=== PATIENT | female | born 1990 | race Caucasian/White ===

== ENCOUNTER 2018-11-01 20:09 | Emergency (ER) | payer MEDICAID, OTHER ==
[~2018-11-01] VITALS: Ht 167.6 cm; Wt 41.7 kg
[2018-11-01 20:09] VITALS: BP 108/77
--- NOTE | 2018-11-01 20:36 | NUR ---
PT BIBS FOR C/O LACERATION TO LW, SUSTAINED WHEN OPENING THE WINDOW, VS STABLE PLACED ON ER BED 15, SEEN BY TEE IZQUIERDO DONE IV ROCEPHINE ORDERED.
[2018-11-01] MEDS ORDERED: CEFAZOLIN 1 GM in IV D5W 50 ML IV ONE (21:00)
--- NOTE | 2018-11-01 21:03 | NUR ---
CALLED FOR MED-SURGE BED, TURNED IN MOVE SHEET. AWAITING FOR INSURANCE APPROVAL
[2018-11-01] MEDS ORDERED: CEFTRIAXONE 1GM BAG (ER ONLY) 50 ML IV ONE (21:13)
--- NOTE | 2018-11-01 21:14 | NUR ---
CALLED [facility] FOR TRANSFER (HIGHER LEVEL OF CARE), [facility] HAS NO BEDS.
[2018-11-01] MEDS ORDERED: CEFTRIAXONE 1GM BAG (ER ONLY) 1 GM/50 ML PIGGYBACK IV ONE (21:30)
[2018-11-01] MEDS ORDERED: LORAZEPAM 1 MG TABLET ONE (21:30)
[2018-11-01] MEDS ORDERED: LORAZEPAM 1 MG TABLET PO ONE (21:30)
--- NOTE | 2018-11-01 21:36 | NUR ---
CALLED [facility] FOR HIGHER LEVEL OF CARE TRANSFER. NO SURGEON
--- NOTE | 2018-11-01 21:43 | NUR ---
LINNEA LORENZO [facility] SURGEON [facility] WILL ACCEPT PT
--- NOTE | 2018-11-01 21:52 | NUR ---
CALLED FOR S TRANSPORT GOING TO [facility]. ETA [id number], TRIP #[id number]
--- NOTE | 2018-11-01 23:11 | NUR ---
CALLED [facility] REPORT GIVEN TO Jacinto PEREYRA RN, PT PICKED UP BY AMBULANCE.
== END 2018-11-01 23:21 | disposition short-term general hospital (02) ==
LOC: ER 20:10
DX: S56.822A Laceration of other muscles, fascia and tendons at forearm level, left arm, initial encounter (principal); F17.200 Nicotine dependence, unspecified, uncomplicated; F10.10 Alcohol abuse, uncomplicated; Y90.9 Presence of alcohol in blood, level not specified; Z60.2 Problems related to living alone; W26.8XXA Contact with other sharp object(s), not elsewhere classified, initial encounter; Y93.89 Activity, other specified; Y92.89 Other specified places as the place of occurrence of the external cause; Y99.8 Other external cause status
CPT/HCPCS: 73090; 87081; 96374; 99285; A6403; J0696; J0690; J7060